=== PATIENT | female | born 1970 | race Caucasian/White ===

== ENCOUNTER 2022-09-05 06:22 | Day surgery (SDC) | payer OTHER ==
[~2022-09-05 06:22] MED LIST: Lidocaine 1%/Sod Bicarbonate in NS 8.4% 1 ML Syringe IDERM PRN; Sodium Chloride 0.9% 10 ML Syringe FLUSH PRN; Sodium Chloride 0.9% 10 ML Syringe FLUSH SCH
[2022-09-05] MEDS ORDERED: Clindamycin Phosphate in D5W 900 MG in Premix Bag 1 BAG IV ONE ×2 (06:30)
[2022-09-05] MEDS ORDERED: Aztreonam 2 GM in Sodium Chloride 0.9% 100 ML IV ONE (06:30)
[2022-09-05] MEDS: Lactated Ringers 1,000 ML IV SCH ×2 (06:40→13:00)
[2022-09-05] MEDS ORDERED: Sodium Chloride 0.9% 50 ML SDV ONE (07:19)
[2022-09-05] MEDS ORDERED: Lidocaine 1% with EPINEPHrine 1:100,000 10 ML MDV ONE (07:19)
[2022-09-05] MEDS ORDERED: Dexamethasone 4 MG/ML 5 ML MDV ONE (07:21)
[2022-09-05] MEDS ORDERED: Lidocaine 1% 4 ML ONE (07:21)
[2022-09-05] MEDS ORDERED: Midazolam 1 MG/ML 2 ML SDV ONE (07:21)
[2022-09-05] MEDS ORDERED: fentaNYL 100 MCG/2 ML SDV ONE (07:21)
[2022-09-05] MEDS ORDERED: Propofol 200 MG/20 ML SDV ONE (07:21)
[2022-09-05] MEDS ORDERED: Ondansetron 4 MG/2 ML SDV ONE (07:21)
[2022-09-05] MEDS ORDERED: Rocuronium 50 MG/5 ML Vial ONE (07:21)
[2022-09-05] MEDS ORDERED: Dexmedetomidine 200 MCG/2 ML SDV ONE (08:22)
[2022-09-05] MEDS ORDERED: Neostigmine Methylsulfate 10 MG/10 ML MDV ONE (08:24)
[2022-09-05] MEDS ORDERED: Lactated Ringers 1,000 ML ONE (08:37)
[2022-09-05] MEDS ORDERED: Ketamine 500 mg/10 ML MDV ONE (08:38)
[2022-09-05] MEDS ORDERED: Acetaminophen/oxyCODONE 325-5 MG Tab PO PRN (09:18)
[2022-09-05] MEDS ORDERED: HYDROmorphone 0.5 MG/0.5 ML Syringe IVPUSH PRN (09:29)
[2022-09-05] MEDS ORDERED: fentaNYL 100 MCG/2 ML SDV IVPUSH PRN (09:29)
[2022-09-05] MEDS ORDERED: Ondansetron 4 MG/2 ML SDV IVPUSH PRN (09:29)
[2022-09-05] MEDS ORDERED: Ketorolac 30 MG/ML SDV IVPUSH SCH (09:30)
[2022-09-05] MEDS ORDERED: Ibuprofen 600 MG Tab PO PRN (12:00)
== END 2022-09-05 15:21 | disposition home or self-care (01) ==
LOC: JD.SDS 06:22
PROVIDERS: ATTEND Obstetrics & Gynecology
DX: D25.9 Leiomyoma of uterus, unspecified (principal); N72 Inflammatory disease of cervix uteri; N83.8 Other noninflammatory disorders of ovary, fallopian tube and broad ligament; E78.00 Pure hypercholesterolemia, unspecified; G43.909 Migraine, unspecified, not intractable, without status migrainosus; J30.9 Allergic rhinitis, unspecified; E55.9 Vitamin D deficiency, unspecified; Z88.2 Allergy status to sulfonamides; Z88.1 Allergy status to other antibiotic agents; Z88.6 Allergy status to analgesic agent; Z79.899 Other long term (current) drug therapy; Z98.890 Other specified postprocedural states
CPT/HCPCS: 36415; 57288; 58262; 80061; 81025; A9270; C1771; J1100; J2250; J2405; J2704; J2710; J3010; J3490; J7120

== ENCOUNTER 2024-02-19 19:16 | Emergency (ER) | payer OTHER | END 2024-02-19 23:05 | disposition home or self-care (01) | LOC: JD.ED 19:16 | DX: M54.2 Cervicalgia (principal); M54.50 Low back pain, unspecified; E78.00 Pure hypercholesterolemia, unspecified; Z88.1 Allergy status to other antibiotic agents; Z88.8 Allergy status to other drugs, medicaments and biological substances; Z88.2 Allergy status to sulfonamides; Z88.6 Allergy status to analgesic agent; Z79.899 Other long term (current) drug therapy; Z86.16 Personal history of COVID-19; Z90.710 Acquired absence of both cervix and uterus; V49.49XA Driver injured in collision with other motor vehicles in traffic accident, initial encounter; Y93.89 Activity, other specified | CPT/HCPCS: 72125; 72125-26; 72131; 72131-26; 99283 ==